=== PATIENT | male | born 1970 | race Caucasian/White ===

== ENCOUNTER → 2016-12-15 | Outpatient (CLI) | payer BC ==
--- NOTE | 2016-12-15 12:10 | DIAGNOSTIC IMAGING REPORT ---
RIGHT KNEE 3 VIEWS CLINICAL HISTORY: Right knee pain. Gait disturbance. Traumatic arthritis. COMPARISON: 10/17/2014 DISCUSSION: There are postsurgical changes are prior ACL repair. There are small dorsal patellar spurs. There are no acute fractures. No destructive lesions are evident. There is a small supra patellar joint effusion. IMPRESSION: 1. No acute fractures 2. Small joint effusion 3. Postsurgical changes of a prior ACL repair 4. Mild degenerative change with small dorsal patellar spurs Electronically signed by: Zia Coffman M.D. 12/15/2016 12:09 PM Dictated Date/Time: 12/15/2016 12:08 PM
--- NOTE | 2016-12-15 12:31 | DIAGNOSTIC IMAGING REPORT ---
ULTRASOUND RIGHT LOWER EXTREMITY VENOUS CLINICAL HISTORY: Right leg pain. Knee injury. COMPARISON STUDY: No priors. TECHNIQUE: Real-time, grayscale, and color Doppler sonography of the deep veins of the right lower extremity was performed from the inguinal crease to the calf. Compression and augmentation were utilized. FINDINGS: There is no sonographic evidence of deep venous thrombosis identified in the right lower extremity. The common femoral, superficial femoral, and popliteal veins are patent and normally compressible. The greater saphenous vein and the profunda femoris vein at the junction with the common femoral vein are clear. The visualized calf veins are patent. There is a complex lobulated/cystic lesion posterior to the knee which measures up to 3.2 cm. IMPRESSION: 1. There is no sonographic evidence of deep venous thrombosis identified in the right lower extremity. 2. There is a complex/lobulated cystic structure posterior to the knee which likely represents a Torres's cyst. This could also represent a small liquefied hematoma based on the clinical history of trauma. Clinical correlation will be required and clinical follow-up to resolution is recommended. Electronically signed by: Christopher Calabrese M.D. 12/15/2016 12:29 PM Dictated Date/Time: 12/15/2016 12:28 PM
== END | disposition home or self-care (01) ==
LOC: C.ULTR 11:14
PROVIDERS: ATTEND Internal Medicine
DX: M79.89 Other specified soft tissue disorders (principal); R26.9 Unspecified abnormalities of gait and mobility; M12.561 Traumatic arthropathy, right knee

== ENCOUNTER → 2017-01-01 | Outpatient (CLI) | payer BC ==
--- NOTE | 2017-01-01 16:38 | DIAGNOSTIC IMAGING REPORT ---
MRI OF THE RIGHT KNEE CLINICAL HISTORY: Right knee pain. COMPARISON STUDY: Radiograph of the right knee dated 12/15/2016. TECHNIQUE: MRI of the right knee was performed utilizing proton density, T1, and T2-weighted sequences in the axial, sagittal, coronal planes. IV contrast was not administered for this examination. FINDINGS: Menisci: There is a large tear involving the posterior horn of the lateral meniscus. This is best seen on sagittal image #8. The tear approaches the meniscal root which may be avulsed. The medial meniscus appears intact. Ligaments: There are postoperative changes consistent with previous ACL repair. The graft is ruptured. The posterior cruciate ligament is intact. The medial and lateral collateral ligaments are within normal limits. Extensor mechanism: The extensor mechanism is intact. Hoffa's fat pad is normal in appearance. There is an approximately 9 mm irregular T1 and T2 hypointense structure identified anterior to the intercondylar notch seen on sagittal image #12. A cyclops lesion is not excluded. Articular cartilage and bone: There is thinning of the articular cartilage within the lateral compartment, which is greater than 50% anteriorly along the weightbearing surface. There is only mild thinning of the articular cartilage in the medial compartment. The patellofemoral compartment appears well-maintained. A large contusion is present across the tibial plateau. Mild contusion is seen within the peripheral aspect of the lateral femoral condyle as well as the peripheral aspect of the medial femoral condyle. Joint effusion: There is trace joint effusion. Soft tissues: The musculature surrounding the knee joint is normal in bulk. Intramuscular edema is noted within the partially imaged soleus. A popliteal cyst measures up to 4.5 cm. IMPRESSION: 1. There are postoperative changes consistent with previous graft repair of the anterior cruciate ligament. The graft is ruptured. 2. There is a large bony contusion seen across the tibial plateau. Small bony contusions are identified peripherally within the medial and lateral femoral condyles. 3. There is a large tear involving the posterior horn of the lateral meniscus which approaches the meniscal root. Avulsion of the root is not excluded. 4. Question a cyclops lesion anterior to the intercondylar notch. 5. Trace joint effusion and small popliteal cyst. 6. The posterior cruciate ligament, the medial meniscus, and the collateral ligaments are intact. 7. Mild intramuscular edema is seen within the body of the partially imaged soleus. Electronically signed by: Christopher Calabrese M.D. 01/01/2017 4:37 PM Dictated Date/Time: 01/01/2017 4:23 PM
== END | disposition home or self-care (01) ==
LOC: C.MRIBC 15:22
PROVIDERS: ATTEND Orthopaedic Surgery
DX: S83.281A Other tear of lateral meniscus, current injury, right knee, initial encounter (principal); X58.XXXA Exposure to other specified factors, initial encounter; M71.21 Synovial cyst of popliteal space [Baker], right knee; Z98.890 Other specified postprocedural states

== ENCOUNTER → 2017-01-22 | Outpatient (CLI) | payer BC ==
[2017-01-22 09:36] LABS: BASO % 0.5 %; BASO ABS # 0.02 K/uL (0-0.2); COMPLETE YES; EOS % 3.4 %; HEMATOCRIT 44.4 % (42-52); IG% 0.2 %; LYMPH % 29.9 %; LYMPH ABS # 1.31 K/uL (1.2-3.4); MEAN CELL VOLUME 86.7 fL (80-100); MEAN CORPUSCULAR HEMOGLOBIN 29.3 pg (25-34); MEAN CORPUSCULAR HGB CONC 33.8 g/dl (32-36); MEAN PLATELET VOLUME 10.9 fL (7.4-10.4); MONO % 9.6 %; NEUT % 56.4 %; PLATELET COUNT 211 K/uL (130-400); RED BLOOD COUNT 5.12 M/uL (4.7-6.1); WHITE BLOOD COUNT 4.38 K/uL (4.8-10.8)
[2017-01-22 09:53] LABS: BLOOD UREA NITROGEN 19 mg/dl (7-18); GLUCOSE 77 mg/dl (70-99)
[2017-01-22 09:54] LABS: BUN/CREATININE RATIO 19.2 (10-20); CALCIUM 9.2 mg/dl (8.5-10.1); CARBON DIOXIDE 29 mmol/L (21-32); CHLORIDE 106 mmol/L (98-107); POTASSIUM 3.8 mmol/L (3.5-5.1); SODIUM 141 mmol/L (136-145)
[2017-01-22 10:04] LABS: CHOLESTEROL 127 mg/dl (0-200); CHOLESTEROL/HDL RATIO 2.7; HDL CHOLESTEROL 47 mg/dl; LDL CHOLESTEROL CALCULATED 54 mg/dl; TRIGLYCERIDES 128 mg/dl (0-150); VERY LOW DENSITY LIPOPROT CALC 26 mg/dl
[2017-01-22 12:42] LABS: LYME DISEASE AB IGG NEG (NEG)
[2017-01-22 12:45] LABS: LYME DISEASE AB IGM NEG (NEG)
== END | disposition home or self-care (01) ==
LOC: C.LAB1850 08:17
PROVIDERS: ATTEND Internal Medicine
DX: M25.529 Pain in unspecified elbow (principal); Z13.220 Encounter for screening for lipoid disorders; R53.83 Other fatigue